=== PATIENT | male | born 1970 | race Two or more races ===

== ENCOUNTER 2019-08-31 23:53 | Emergency (ER) | payer MEDICAID, OTHER, SELFPAY ==
[~2019-08-31] VITALS: Ht 167.6 cm; Wt 82.6 kg
--- NOTE | 2019-09-01 00:21 | NUR ---
Patient presents to ER c/o dizziness while at work which started around 1944. Patient states he checked his BP and it was high; patient has a hx of HTN. Patient is still dizzy. Denies CP, SOB, blurry vision, or GOMEZ. Patient is in NAD. Respirations even and unlabored.
[2019-09-01 00:47] LABS: BASOPHILS # (AUTO) 0.06 x10^3/uL (0-0.1); BASOPHILS % (AUTO) 1 % (0-1); EOSINOPHILS # (AUTO) 0.21 x10^3/uL (0-0.4); EOSINOPHILS % (AUTO) 3 % (1-7); LYMPHOCYTES # (AUTO) 2.13 x10^3/uL (1-3.4); LYMPHOCYTES % (AUTO) 27 % (22-44); MD NO; MEAN CORPUSCULAR HEMOGLOBIN 29.4 pg (27.5-34.5); MEAN CORPUSCULAR HGB CONC 33.6 g/dL (33.2-36.2); MEAN CORPUSCULAR VOLUME 87.4 fL (81-97); MEAN PLATELET VOLUME 8.6 fL (7.4-10.4); MONOCYTES # (AUTO) 0.65 x10^3/uL (0.2-0.8); MONOCYTES % (AUTO) 8 % (2-9); NEUTROPHILS # (AUTO) 4.86 x10^3/uL (1.8-6.8); NEUTROPHILS % (AUTO) 62 % (42-75); PLATELET COUNT 312 x10^3/uL (130-400); RED BLOOD COUNT 4.76 x10^6/uL (4.38-5.82); RED CELL DISTRIBUTION WIDTH 13.4 % (9.4-14.8)
[2019-09-01 00:53] LABS: ALBUMIN 3.8 g/dL (3.4-5.0); ANION GAP 4 mmol/L (5-15); CALCIUM 8.6 mg/dL (8.5-10.1); CHLORIDE 107 mmol/L (98-107); CREATININE 1.48 mg/dL (0.7-1.3); T4 (THYROXINE) 9.8 mcg/dL (4.5-12.1)
[2019-09-01 00:57] LABS: TROPONIN I < 0.015 ng/mL (0.000-0.045)
[2019-09-01 01:22] VITALS: BP 116/75
--- NOTE | 2019-09-01 01:22 | NUR ---
RESTING ON GURNEY, PT STATES HE FEELS MUCH BETTER. VSS. ERP AT BEDSIDE, AWAITING DISCHARGE.
== END 2019-09-01 01:36 | disposition home or self-care (01) ==
LOC: ED 09-01 00:53
DX: R55 Syncope and collapse (principal); R94.4 Abnormal results of kidney function studies; I10 Essential (primary) hypertension; Z87.891 Personal history of nicotine dependence
CPT/HCPCS: 36415; 80048; 82040; 83880; 84436; 84443; 84484; 85025; 93005; 99284